=== PATIENT | female | born 1935 | race Caucasian/White ===

== ENCOUNTER 2016-10-06 18:58 | Emergency (ER) | payer MEDICARE, OTHER ==
[~2016-10-06] VITALS: Ht 152.4 cm; Wt 43.0 kg
[2016-10-06 19:34] VITALS: Ht 152.4 cm; Wt 43.0 kg
== END 2016-10-07 01:34 | disposition left against medical advice (07) ==
LOC: E/R 18:58
DX: Z53.21 Procedure and treatment not carried out due to patient leaving prior to being seen by health care provider (principal)